=== PATIENT | male | born 1975 | race Caucasian/White ===

== ENCOUNTER 2016-11-09 16:25 | Inpatient (IN) | payer BC ==
[~2016-11-09] VITALS: Ht 180.3 cm; Wt 93.4 kg
--- NOTE | ~2016-11-09 | EKG ---
[place], [place] ELECTROCARDIOGRAM REPORT NAME: NOHEMI MORALES UNIT #: [id number] ROOM: 402 DOCTOR: EZEQUIEL VILLALTA MD BIRTHDATE: [birth year] DOS: 11/10/2016 TIME: 12:53 p.m. Normal sinus rhythm at rate of 92. Normal electrocardiogram. EZEQUIEL VILLALTA MD CM:EKGRPT:ELECTROCARDIOGRAM REPORT [id number] EZEQUIEL VILLALTA MD
--- NOTE | ~2016-11-09 | ST ---
[place], [place] EXERCISE STRESS TEST REPORT NAME: [facility]MI [facility]ALES [id number] UNIT #: [id number] ROOM: 402 DOCTOR: EZEQUIEL VILLALTA MD BIRTHDATE: [birth year] DOS: 11/10/2016 EXERCISE STRESS NUCLEAR PERFUSION EXAMINATION INDICATIONS: Atypical chest pain. PROCEDURE: The patient walked on a full Jose protocol stress test for 10 minutes 55 seconds and stopped for fatigue. He achieved a maximum heart rate of 166, which represented 93% of his maximum predicted heart rate at a workload of 12.5 mets. He had chest discomfort throughout the test, which did not seem to change much with exertion. The resting blood pressure 130/80 eli to 182/84. He had no arrhythmias and no diagnostic electrocardiographic changes. One minute prior to completion of exercise protocol, the patient was given radionuclide intravenously. IMPRESSION: 1. Excellent exercise capacity. The patient did have chest pain throughout the study, which did not change with the examination. 2. Anders treadmill score 6.9 consistent with a low risk of acute myocardial events. 3. Radionuclide injected. Please see the separate imaging report for further details of the patient's stress test results. EZEQUIEL VILLALTA MD CM:STRESS:EXERCISE STRESS TEST REPORT [id number] EZEQUIEL VILLALTA MD
--- NOTE | ~2016-11-09 | EKG ---
[place], [place] ELECTROCARDIOGRAM REPORT NAME: NOHEMI MORALES UNIT #: [id number] ROOM: 402 DOCTOR: EZEQUIEL VILLALTA MD BIRTHDATE: [birth year] DOS: 11/09/2016 TIME: 1639 hours. FINDINGS: Sinus tachycardia at a rate of 101. Otherwise normal EKG. EZEQUIEL VILLALTA MD CM:EKGRPT:ELECTROCARDIOGRAM REPORT [id number] [phone] EZEQUIEL VILLALTA MD
[~2016-11-09 16:25] MED LIST: AMBIEN10 MG PO; ASPIRIN ADULT L81 M2 PO; ATIVAN1 MG PO; CEPHALEXIN500 M1 PO; LISINOPRIL10 M1 PO; LOMOTIL 0.025 M1 TA1 PO; LOPRESSOR25 MG PO; LOTRIMIN AF1% TP; MOBIC15 MG PO; Motrin,Rufen800 MG PO; NITROSTAT0.4 MG SL; PHENERGAN25 M1 PO; PRAVACHOL80 M1 PO; PRILOSEC40 MG PO; SONATA5 MG PO; TRICOR48 MG PO; VICO10300 PO; VICODIN 5/500 505 MG PO; VICODIN HP 6601 TA1 PO; ZITHROMAX250 MG PO; ZOCOR10 MG PO; ZOLOFT50 MG PO
[2016-11-09 16:28] VITALS: BP 182/116
[2016-11-09] MEDS ORDERED: CYCLOBENZAPRINE10 MG PO (16:45)
[2016-11-09 16:46] LABS: BASO # 0.1 10*3/uL (0.0-0.1); BASO % 0.6 % (0.0-1.0); EOS # 0.1 10*3/uL (0.0-0.4); EOS % 0.5 % (1.0-4.0); HEMATOCRIT 42.9 % (42.0-52.0); HEMOGLOBIN 14.4 g/dl (14.0-18.0); LYMPH # 2.6 10*3/uL (1.3-4.4); MEAN CELL VOLUME 93.3 fl (80.0-94.0); MEAN CORPUSCULAR HGB 31.3 pg (27.0-31.0); MEAN CORPUSCULAR HGB CONC 33.6 g/dl (33.0-37.0); MEAN PLATELET VOLUME 8.9 fl (9.6-12.3); MONO # 0.8 10*3/uL (0.1-1.0); MONO % 6.1 % (3.0-9.0); NEUT # 8.7 10*3/uL (2.3-7.9); NEUT % 71.6 % (47.0-73.0); PLATELET COUNT AUTOMATED 292 10*3/uL (130-400); RED CELL DISTRI WIDTH 14.3 % (0-14.5); WHITE BLOOD COUNT 12.2 10*3/uL (4.8-10.8)
[2016-11-09] MEDS ORDERED: LIPITOR10 MG PO (16:46)
[2016-11-09 16:48] VITALS: BP 173/112
[2016-11-09 16:56] LABS: PROTHROMBIN TIME 10.1 SECONDS (9.0-12.4)
[2016-11-09 17:03] LABS: ALKALINE PHOSPHATASE 80 U/L (45-117); BILIRUBIN, TOTAL 0.5 mg/dl (0.2-1.0); BUN 20 mg/dl (7-24); CARBON DIOXIDE 24 mmol/L (21-32); CHLORIDE 109 mmol/L (98-107); CPK 60 U/L (39-308); EST GLOM FILT AFRICAN AMERICAN > 60 ml/min; GLUCOSE 94 mg/dL (65-99); MAGNESIUM 2.2 mg/dL (1.5-2.1); POTASSIUM 3.6 mmol/L (3.5-5.1); SGOT/AST 22 IU/L (3-35); SGPT/ALT 30 U/L (12-78); SODIUM 141 mmol/L (136-145); TOTAL PROTEIN 7.8 gm/dL (6.4-8.2)
[2016-11-09 17:05] LABS: C-REACTIVE PROTEIN < 0.29 MG/DL (0-0.3); CKMB < 0.5 ng/ml (0.5-3.6); TROPONIN I < 0.015 ng/ml (<0.045)
[2016-11-09 17:51] VITALS: BP 163/109
[2016-11-09 18:24] VITALS: BP 155/106
[2016-11-09 18:27] VITALS: BP 170/105
[2016-11-09 18:37] LABS: CPK 49 U/L (39-308)
[2016-11-09 18:53] LABS: CKMB < 0.5 ng/ml (0.5-3.6); TROPONIN I < 0.015 ng/ml (<0.045)
[2016-11-09] MEDS ORDERED: ACETAMINOPHEN/O1 TA1 PO (19:40)
[2016-11-09 20:00] VITALS: BP 166/98
[2016-11-10] VITALS: BP 140/79
[2016-11-10 00:25] LABS: CPK 44 U/L (39-308)
[2016-11-10 00:26] LABS: CKMB < 0.5 ng/ml (0.5-3.6); TROPONIN I < 0.015 ng/ml (<0.045)
[2016-11-10 07:06] LABS: CPK 43 U/L (39-308)
[2016-11-10 07:08] LABS: BASO # 0.1 10*3/uL (0.0-0.1); BASO % 0.8 % (0.0-1.0); EOS # 0.1 10*3/uL (0.0-0.4); EOS % 1.5 % (1.0-4.0); HEMATOCRIT 39.7 % (42.0-52.0); HEMOGLOBIN 13.4 g/dl (14.0-18.0); LYMPH # 2.3 10*3/uL (1.3-4.4); LYMPH % 26.5 % (27.0-41.0); MEAN CELL VOLUME 93.9 fl (80.0-94.0); MEAN CORPUSCULAR HGB 31.7 pg (27.0-31.0); MEAN CORPUSCULAR HGB CONC 33.8 g/dl (33.0-37.0); MEAN PLATELET VOLUME 9.5 fl (9.6-12.3); MONO # 0.6 10*3/uL (0.1-1.0); MONO % 6.6 % (3.0-9.0); NEUT # 5.6 10*3/uL (2.3-7.9); NEUT % 64.5 % (47.0-73.0); PLATELET COUNT AUTOMATED 276 10*3/uL (130-400); RED BLOOD COUNT 4.23 10*6/uL (4.50-5.90); RED CELL DISTRI WIDTH 14.2 % (0-14.5); WHITE BLOOD COUNT 8.7 10*3/uL (4.8-10.8)
[2016-11-10 07:09] LABS: CKMB < 0.5 ng/ml (0.5-3.6); TROPONIN I < 0.015 ng/ml (<0.045)
[2016-11-10 07:13] LABS: HEMOGLOBIN A1c 5.4 % (4.8-5.6)
[2016-11-10 07:25] LABS: ALBUMIN 3.6 gm/dl (3.1-4.5); ALKALINE PHOSPHATASE 72 U/L (45-117); BUN 16 mg/dl (7-24); CARBON DIOXIDE 25 mmol/L (21-32); CHLORIDE 108 mmol/L (98-107); CHOLESTEROL 174 mg/dL (<200); EST GLOM FILT AFRICAN AMERICAN > 60 ml/min; FREE T4 0.85 ng/dl (0.76-1.46); GLUCOSE 96 mg/dL (65-99); HDL CHOLESTEROL 64 mg/dl (40-60); MAGNESIUM 2.2 mg/dL (1.5-2.1); PHOSPHOROUS 3.9 mg/dL (2.5-4.9); POTASSIUM 3.3 mmol/L (3.5-5.1); SGOT/AST 19 IU/L (3-35); SODIUM 142 mmol/L (136-145)
[2016-11-10 07:30] LABS: BILIRUBIN, TOTAL 0.6 mg/dl (0.2-1.0); LDL CHOLESTEROL 77 mg/dL (9-159); SGPT/ALT 25 U/L (12-78); TRIGLYCERIDES 167 mg/dl (<150); VLDL CHOLESTEROL 33 mg/dL (6-40)
[2016-11-10 07:50] LABS: PROTHROMBIN TIME 10.1 SECONDS (9.0-12.4)
[2016-11-10 08:00] VITALS: BP 150/86
[2016-11-10 08:14] LABS: FOLIC ACID 23.69 ng/mL (>5.38); VITAMIN D, 25-HYDROXY 14.1 ng/mL (30-100)
[2016-11-10 12:00] VITALS: BP 160/100
[2016-11-10 13:20] LABS: CPK 44 U/L (39-308)
[2016-11-10 13:21] LABS: CKMB < 0.5 ng/ml (0.5-3.6); TROPONIN I < 0.015 ng/ml (<0.045)
[2016-11-10 14:13] VITALS: BP 110/82
[2016-11-10 16:00] VITALS: BP 142/87
[2016-11-10] MEDS ORDERED: LISINOPRIL10 M1 PO (18:25)
== END 2016-11-10 18:49 | disposition home or self-care (01) | DRG 313 ==
LOC: ED 16:25 → EDHOLD 17:24 → 4E 17:24
PROVIDERS: Emergency Medicine; Internal Medicine
PROC: 4A02XM4 Measurement of Cardiac Total Activity, External Approach (ICD-10-PCS; principal; 2016-11-10)
DX: R07.89 Other chest pain (principal); R65.10 Systemic inflammatory response syndrome (SIRS) of non-infectious origin without acute organ dysfunction; K21.9 Gastro-esophageal reflux disease without esophagitis; F41.9 Anxiety disorder, unspecified; G47.00 Insomnia, unspecified; E78.5 Hyperlipidemia, unspecified; E78.00 Pure hypercholesterolemia, unspecified; R91.1 Solitary pulmonary nodule; Z82.49 Family history of ischemic heart disease and other diseases of the circulatory system; Z82.61 Family history of arthritis; Z88.1 Allergy status to other antibiotic agents; Z79.899 Other long term (current) drug therapy; Z71.6 Tobacco abuse counseling; Z87.891 Personal history of nicotine dependence

== ENCOUNTER 2018-07-15 17:36 | Emergency (ER) | payer OTHER ==
[~2018-07-15] VITALS: Ht 180.3 cm; Wt 95.3 kg
[~2018-07-15 17:36] MED LIST changes: +ACETAMINOPHEN/O1 TA1 PO; +CYCLOBENZAPRINE10 MG PO; +LIPITOR10 MG PO
[2018-07-15] MEDS ORDERED: Motrin,Rufen800 MG PO (19:07)
== END 2018-07-15 19:22 | disposition home or self-care (01) ==
LOC: ED 17:36
DX: S20.211A Contusion of right front wall of thorax, initial encounter (principal); K21.9 Gastro-esophageal reflux disease without esophagitis; E78.00 Pure hypercholesterolemia, unspecified; F17.200 Nicotine dependence, unspecified, uncomplicated; Z88.1 Allergy status to other antibiotic agents; Z79.899 Other long term (current) drug therapy; W01.198A Fall on same level from slipping, tripping and stumbling with subsequent striking against other object, initial encounter; Y93.89 Activity, other specified; Y92.89 Other specified places as the place of occurrence of the external cause; Y99.8 Other external cause status

== ENCOUNTER 2020-11-27 22:01 | Emergency (ER) | payer OTHER ==
[~2020-11-27] VITALS: Ht 177.8 cm; Wt 106.6 kg
[2020-11-27 22:30] LABS: BASO % 0.2 % (0.0-1.0); HEMATOCRIT 48.2 % (42.0-52.0); LYMPH # 1.6 10*3/uL (1.3-4.4); LYMPH % 13.5 % (27.0-41.0); MEAN CELL VOLUME 89.9 fl (80.0-94.0); MEAN CORPUSCULAR HGB 30.6 pg (27.0-31.0); MEAN PLATELET VOLUME 9.3 fl (9.6-12.3); MONO # 0.8 10*3/uL (0.1-1.0); MONO % 6.4 % (3.0-9.0); NEUT # 9.7 10*3/uL (2.3-7.9); NEUT % 79.6 % (47.0-73.0); PLATELET COUNT AUTOMATED 366 10*3/uL (130-400); RED BLOOD COUNT 5.36 10*6/uL (4.50-5.90); RED CELL DISTRI WIDTH 14.5 % (0-14.5); WHITE BLOOD COUNT 12.1 10*3/uL (4.8-10.8)
[2020-11-27 22:45] LABS: ALBUMIN 3.9 gm/dl (3.1-4.5); ALKALINE PHOSPHATASE 85 U/L (45-117); BUN 22 mg/dl (7-24); CHLORIDE 106 mmol/L (98-107); CREATININE 1.03 mg/dL (0.70-1.30); LIPASE 113 U/L (73-393); POTASSIUM 2.9 mmol/L (3.5-5.1); SGOT/AST 10 IU/L (3-35); SGPT/ALT 21 U/L (12-78); SODIUM 136 mmol/L (136-145); TOTAL PROTEIN 8.8 gm/dL (6.4-8.2)
[2020-11-28] MEDS ORDERED: FLAGYL500 MG PO (01:40)
[2020-11-28] MEDS ORDERED: ZOFRAN4 MG PO (01:40)
== END 2020-11-28 02:01 | disposition home or self-care (01) ==
LOC: ED 22:01
PROVIDERS: Physician Assistant
DX: K52.9 Noninfective gastroenteritis and colitis, unspecified (principal); Z20.822 Contact with and (suspected) exposure to COVID-19; E87.6 Hypokalemia; D72.829 Elevated white blood cell count, unspecified; R79.82 Elevated C-reactive protein (CRP); F17.200 Nicotine dependence, unspecified, uncomplicated; Z88.1 Allergy status to other antibiotic agents; Z79.899 Other long term (current) drug therapy; Z98.890 Other specified postprocedural states

== ENCOUNTER 2021-06-30 13:09 | Emergency (ER) | payer OTHER ==
[~2021-06-30 13:09] MED LIST changes: +FLAGYL500 MG PO; +ZOFRAN4 MG PO
[2021-06-30] MEDS ORDERED: Fioricet 325 MG1 TAB PO (16:37)
== END 2021-06-30 16:49 | disposition home or self-care (01) ==
LOC: ED 13:09
DX: G43.909 Migraine, unspecified, not intractable, without status migrainosus (principal)

== ENCOUNTER 2021-11-06 07:48 | Emergency (ER) | payer OTHER ==
[~2021-11-06] VITALS: Wt 99.8 kg
[~2021-11-06 07:48] MED LIST changes: +Fioricet 325 MG1 TAB PO
[2021-11-06] MEDS ORDERED: TYLENOL325 M1 PO (08:26)
[2021-11-06] MEDS ORDERED: NAPROXEN250 MG PO (08:26)
== END 2021-11-06 08:56 | disposition home or self-care (01) ==
LOC: ED 07:48
DX: S93.401A Sprain of unspecified ligament of right ankle, initial encounter (principal); K21.9 Gastro-esophageal reflux disease without esophagitis; G43.909 Migraine, unspecified, not intractable, without status migrainosus; F17.200 Nicotine dependence, unspecified, uncomplicated; Z88.1 Allergy status to other antibiotic agents; Z79.899 Other long term (current) drug therapy; W22.8XXA Striking against or struck by other objects, initial encounter; Y93.89 Activity, other specified; Y92.89 Other specified places as the place of occurrence of the external cause; Y99.8 Other external cause status

== ENCOUNTER 2022-07-22 11:58 | Emergency (ER) | payer OTHER ==
[~2022-07-22] VITALS: Ht 180.3 cm; Wt 106.6 kg
[~2022-07-22 11:58] MED LIST changes: +NAPROXEN250 MG PO; +TYLENOL325 M1 PO
[2022-07-22 12:52] LABS: BASO # 0.1 10*3/uL (0.0-0.1); BASO % 0.6 % (0.0-1.0); EOS % 0.2 % (1.0-4.0); HEMATOCRIT 45.9 % (42.0-52.0); LYMPH # 1.2 10*3/uL (1.3-4.4); LYMPH % 14.1 % (27.0-41.0); MEAN CELL VOLUME 98.5 fl (80.0-94.0); MEAN CORPUSCULAR HGB 32.6 pg (27.0-31.0); MEAN CORPUSCULAR HGB CONC 33.1 g/dl (33.0-37.0); MEAN PLATELET VOLUME 10.1 fl (9.6-12.3); MONO # 0.5 10*3/uL (0.1-1.0); MONO % 6.1 % (3.0-9.0); NEUT # 6.9 10*3/uL (2.3-7.9); NEUT % 78.8 % (47.0-73.0); PLATELET COUNT AUTOMATED 276 10*3/uL (130-400); RED BLOOD COUNT 4.66 10*6/uL (4.50-5.90); RED CELL DISTRI WIDTH 13.1 % (0-14.5); WHITE BLOOD COUNT 8.7 10*3/uL (4.8-10.8)
[2022-07-22 13:50] LABS: BILIRUBIN Negative (Negative); BLOOD 3+ (Negative); CLARITY Turbid (Clear); COLOR Orange (Yellow); GLUCOSE Negative (Negative); KETONE Trace (Negative); LEUKO ESTERASE 1+ (Negative); NITRITE Negative (Negative); PH 5.5 (4.5-8.0); SPECIFIC GRAVITY >= 1.030 (1.001-1.030)
[2022-07-22 14:02] LABS: ALKALINE PHOSPHATASE 68 U/L (46-116); BUN 20 mg/dl (9-23); CHLORIDE 110 mmol/L (98-107); LIPASE 24 U/L (12-53); POTASSIUM 3.4 mmol/L (3.4-5.1); SGPT/ALT 49 U/L (10-49)
[2022-07-22 14:06] LABS: RBC TNTC rbc/hpf (0-2)
[2022-07-22 14:07] LABS: BACTERIA 1+; MUCOUS 1+
[2022-07-22] MEDS ORDERED: HYDROCODONE-AC1 EAC1 PO (15:08)
[2022-07-22] MEDS ORDERED: SEPTDS PO (15:08)
[2022-07-22] MEDS ORDERED: ONDANSETRON4 MG SL (15:08)
[2022-07-22] MEDS ORDERED: Motrin,Rufen800 MG PO (15:08)
[2022-07-22] MEDS ORDERED: FLOMAX0.4 MG PO (15:08)
== END 2022-07-22 15:31 | disposition home or self-care (01) ==
LOC: ED 11:58
PROVIDERS: Physician Assistant
DX: N20.1 Calculus of ureter (principal); Z88.1 Allergy status to other antibiotic agents; Z98.890 Other specified postprocedural states; F17.200 Nicotine dependence, unspecified, uncomplicated; F10.20 Alcohol dependence, uncomplicated